=== PATIENT | female | born 2000 | race African-American/Black ===

== ENCOUNTER 2019-08-19 13:31 | Emergency (ER) | payer MEDICAID ==
[~2019-08-19] VITALS: Ht 162.6 cm; Wt 63.7 kg
[2019-08-19 13:44] VITALS: BP 125/78
--- NOTE | 2019-08-19 13:46 | NUR ---
URINE CUP HANDED TO PT FOR SAMPLE
--- NOTE | 2019-08-19 14:31 | NUR ---
C/O FRONTAL LOBE/SINUSES PRESSURE PAIN X 3 WKS----ADMITS TO RECENT RECOVERY FROM COLD SYMPTOMS---NASAL CONGESTION REMAINS DENIES INJURY HX--DENIES RX---VITAMINS, CONTROL
--- NOTE | 2019-08-19 15:00 | NUR ---
DR LOWERY AT BEDSIDE
[2019-08-19] MEDS ORDERED: ACETAMINOPHEN EXTRA STRENGTH 500 MG TAB PO ONE (15:30)
[2019-08-19] MEDS ORDERED: IBUPROFEN 600 MG TAB PO ONE (15:30)
--- NOTE | 2019-08-19 15:38 | NUR ---
MOTRIN AND TYLENOLA DMINISTERED ORDERED
[2019-08-19 15:50] VITALS: BP 136/72
--- NOTE | 2019-08-19 15:50 | NUR ---
Patient discharged with v/s stable. Written and verbal after care instructions given and explained. Patient alert, oriented and verbalized understanding of instructions. Ambulatory with steady gait. All questions addressed prior to discharge. ID band removed. Patient advised to follow up with PMD. Rx of MOTRIN AND TYLENOL given. Patient educated on indication of medication including possible reaction and side effects. Opportunity to ask questions provided and answered. PT EDUCATED ON ALTERNATING BETWEEN THE TWO MEDICATIONS
== END 2019-08-19 15:50 | disposition home or self-care (01) ==
LOC: MED 13:31
DX: R51 Headache (principal); R09.81 Nasal congestion; J02.9 Acute pharyngitis, unspecified
CPT/HCPCS: 81002; 81025; 99283

== ENCOUNTER 2019-08-23 10:02 | Emergency (ER) | payer MEDICAID ==
[~2019-08-23] VITALS: Ht 160 cm; Wt 63.5 kg
[2019-08-23 10:04] VITALS: BP 114/69
--- NOTE | 2019-08-23 10:10 | NUR ---
Patient ambulated to bed 8. RN evaluating patient at bedside.
--- NOTE | 2019-08-23 10:27 | NUR ---
Dr. Hernández evaluating patient at bedside.
[2019-08-23 10:39] VITALS: BP 114/69
--- NOTE | 2019-08-23 10:39 | NUR ---
Patient discharged with v/s stable. Written and verbal after care instructions given and explained. Patient alert, oriented and verbalized understanding of instructions. Ambulatory with steady gait. All questions addressed prior to discharge. ID band removed. Patient advised to follow up with PMD. Rx of VALACYCLOVIR given. Patient educated on indication of medication including possible reaction and side effects. Opportunity to ask questions provided and answered.
== END 2019-08-23 10:39 | disposition home or self-care (01) ==
LOC: MED 10:02
DX: R20.2 Paresthesia of skin (principal)
CPT/HCPCS: 99283